=== PATIENT | female | born 1930 | race Caucasian/White ===

== ENCOUNTER → 2019-10-26 | Outpatient (CLI) | payer MEDICARE ==
--- NOTE | 2019-10-26 14:24 | Diagnostic Imaging Report ---
EXAMINATION: CT Abdomen Pelvis without contrast. TECHNIQUE: Multiple contiguous axial images were obtained through the abdomen and pelvis without the use of intravenous contrast. All CT scans use one or more of the following dose optimizing techniques: automated exposure control, MA and/or KvP adjustment based on a patient size and exam type, or iterative reconstruction. HISTORY: Urinary tract infection and hematuria. COMPARISON: None available. FINDINGS: Limited views of the lower thorax are unremarkable. The liver is normal without focal lesion. There is no biliary ductal dilation. Gallbladder is surgically absent. Pancreas is normal. Spleen is normal. Adrenal glands are normal. Simple cyst is present in the right kidney. No suspicious renal lesions are seen. No renal stones are seen. There is no hydronephrosis. There is a 13 mm calcification in the base of the bladder which likely represents a bladder stone. Uterus and adnexa are not seen. There are no dilated loops of large or small bowel. No obstruction or inflammation. No free fluid or air. No abdominal or pelvic lymphadenopathy. Aorta is normal in caliber without aneurysm. There are no suspicious osseus lesions. Spinal stimulator is present. There has been posterior decompression and instrumented fusion of L4-L5. IMPRESSION: 1. Large stone in the base of the bladder. Dictated by: Dictated on workstation # [id number]
== END ==
LOC: RAD 12:56
PROVIDERS: ATTEND Urology
DX: N21.0 Calculus in bladder (principal); Z87.440 Personal history of urinary (tract) infections
CPT/HCPCS: 74176

== ENCOUNTER 2019-12-05 10:49 | Outpatient (CLI) | payer MEDICARE ==
[~2019-12-05] VITALS: Ht 167 cm; Wt 126.0 kg
[2019-12-05] MEDS ORDERED: DABI150C5 PO (11:09)
[2019-12-05] MEDS ORDERED: METO50TA15 PO (11:09)
[2019-12-05] MEDS ORDERED: MIRA50TA PO (11:09)
[2019-12-05] MEDS ORDERED: GLIM4TAB5 PO (11:09)
[2019-12-05] MEDS ORDERED: HYDR25TA4 PO (11:09)
[2019-12-05] MEDS ORDERED: NITR-68 PO (11:09)
[2019-12-05] MEDS ORDERED: DULO60CA59 PO (11:09)
[2019-12-05] MEDS ORDERED: METF-399 PO (11:09)
[2019-12-05] MEDS ORDERED: CALC600T12 PO (11:09)
[2019-12-05] MEDS ORDERED: LANS30TA9 PO (11:09)
[2019-12-05] MEDS ORDERED: MIRT15TA6 PO (11:09)
[2019-12-05] MEDS ORDERED: CHOL500049 PO (11:09)
[2019-12-05] MEDS ORDERED: LEVO75TA97 PO (11:09)
[2019-12-05] MEDS ORDERED: AMLO5TAB9 PO (11:09)
[2019-12-05] MEDS ORDERED: MAGN250T13 PO (11:09)
[2019-12-05] MEDS ORDERED: ASPI-586 PO (11:17)
== END 2019-12-05 13:17 | disposition home or self-care (01) ==
LOC: PREOP 10:49
PROVIDERS: ATTEND Urology
DX: Z01.818 Encounter for other preprocedural examination (principal)

== ENCOUNTER 2019-12-12 06:45 | Day surgery (SDC) | payer MEDICARE ==
[~2019-12-12] VITALS: Ht 167 cm; Wt 128.6 kg
[2019-12-12] VITALS (10 sets, daily range): BP systolic 137–180; BP diastolic 62–88
[~2019-12-12 06:45] MED LIST: AMLO5TAB9 PO; ASPI-586 PO; CALC600T12 PO; CHOL500049 PO; DABI150C5 PO; DULO60CA59 PO; GLIM4TAB5 PO; HYDR25TA4 PO; LANS30TA9 PO; LEVO75TA97 PO; MAGN250T13 PO; METF-399 PO; METO50TA15 PO; MIRA50TA PO; MIRT15TA6 PO; NITR-68 PO
--- OUTSIDE RECORDS SUMMARY | 2019-12-12 06:49 | XMS REPORT | CCD ---
Author Author JOHN SHIELDS Organization Unknown Address [address] [place], [place] [id number] Care Team Providers Care Firesetter Name Role Phone DANA SEPULVEDA, ASAF FLORES Attphys F., JESSICA NASST H., BURAK NASST C., JUDAH NASST W., ADAM NASST S., GEOVANNI NASST H., LYNDA NASST B., DIANNA NASST S., GISELLE BLAS NASST B., ANJEL NASST R., GRISELDA NASST A., DOMINICK NASST M., ALBERTO NASST M., SHELBY S NASST S., YOSLEIN NASST Vital Signs Vital Sign Value Unit Weight Measured 300 lbs Height 67 in BMI (Body Mass Index) 46.99 kg/m^2 BSA (Body Surface Area) 2.54 m^2 BP Systolic 135 mmHg BP Diastolic 90 mmHg BP Systolic 140 mmHg BP Diastolic 62 mmHg BP Systolic 134 mmHg BP Diastolic 70 mmHg BP Systolic 136 mmHg BP Diastolic 72 mmHg BP Systolic 148 mmHg BP Diastolic 68 mmHg BP Systolic 123 mmHg BP Diastolic 65 mmHg BP Systolic 136 mmHg BP Diastolic 53 mmHg BP Systolic 122 mmHg BP Diastolic 53 mmHg BP Systolic 128 mmHg BP Diastolic 65 mmHg BP Systolic 153 mmHg BP Diastolic 71 mmHg BP Systolic 143 mmHg BP Diastolic 73 mmHg BP Systolic 140 mmHg BP Diastolic 63 mmHg BP Systolic 132 mmHg BP Diastolic 67 mmHg BP Systolic 137 mmHg BP Diastolic 76 mmHg BP Systolic 140 mmHg BP Diastolic 60 mmHg BP Systolic 131 mmHg BP Diastolic 62 mmHg BP Systolic 119 mmHg BP Diastolic 65 mmHg BP Systolic 123 mmHg BP Diastolic 49 mmHg BP Systolic 137 mmHg BP Diastolic 67 mmHg BP Systolic 135 mmHg BP Diastolic 68 mmHg BP Systolic 143 mmHg BP Diastolic 71 mmHg BP Systolic 143 mmHg BP Diastolic 62 mmHg Respiratory Rate 20 bpm Respiratory Rate 20 bpm Respiratory Rate 20 bpm Respiratory Rate 18 bpm Respiratory Rate 16 bpm Respiratory Rate 18 bpm Respiratory Rate 20 bpm Respiratory Rate 20 bpm Respiratory Rate 20 bpm Respiratory Rate 18 bpm Respiratory Rate 18 bpm Respiratory Rate 20 bpm Respiratory Rate 18 bpm Respiratory Rate 18 bpm Respiratory Rate 20 bpm Respiratory Rate 20 bpm Respiratory Rate 20 bpm Respiratory Rate 20 bpm Respiratory Rate 20 bpm Respiratory Rate 20 bpm Respiratory Rate 20 bpm Respiratory Rate 18 bpm Heart Rate 91 bpm Heart Rate 100 bpm Heart Rate 88 bpm Heart Rate 81 bpm Heart Rate 86 bpm Heart Rate 84 bpm Heart Rate 93 bpm Heart Rate 67 bpm Heart Rate 89 bpm Heart Rate 90 bpm Heart Rate 89 bpm Heart Rate 94 bpm Heart Rate 92 bpm Heart Rate 86 bpm Heart Rate 86 bpm Heart Rate 86 bpm Heart Rate 77 bpm Heart Rate 77 bpm Heart Rate 80 bpm Heart Rate 86 bpm Heart Rate 87 bpm Heart Rate 85 bpm O2 % BldC Oximetry 95 % O2 % BldC Oximetry 95 % O2 % BldC Oximetry 95 % O2 % BldC Oximetry 95 % O2 % BldC Oximetry 96 % O2 % BldC Oximetry 97 % O2 % BldC Oximetry 95 % O2 % BldC Oximetry 95 % O2 % BldC Oximetry 95 % O2 % BldC Oximetry 97 % O2 % BldC Oximetry 96 % O2 % BldC Oximetry 96 % O2 % BldC Oximetry 96 % O2 % BldC Oximetry 96 % O2 % BldC Oximetry 98 % O2 % BldC Oximetry 96 % O2 % BldC Oximetry 95 % O2 % BldC Oximetry 95 % O2 % BldC Oximetry 95 % O2 % BldC Oximetry 96 % O2 % BldC Oximetry 95 % O2 % BldC Oximetry 99 % Body Temperature 96.9 degrees Body Temperature 97.4 degrees Body Temperature 97 degrees Body Temperature 97 degrees Body Temperature 98.2 degrees Body Temperature 98.3 degrees Body Temperature 98.6 degrees Body Temperature 96.8 degrees Body Temperature 96.8 degrees Body Temperature 96.8 degrees Body Temperature 96.9 degrees Body Temperature 96.9 degrees Body Temperature 96.9 degrees Body Temperature 97 degrees Body Temperature 96.8 degrees Body Temperature 97 degrees Body Temperature 97.1 degrees Body Temperature 98.7 degrees Body Temperature 98.6 degrees Body Temperature 97.3 degrees Body Temperature 98.4 degrees Body Temperature 98 degrees Allergies Allergy Code Allergy Type Reaction Status CEPHALEXIN 0 Drug allergy (disorder) Active SINGULAIR 0 Drug allergy (disorder) Active CELEBREX 0 Drug allergy (disorder) Active NAPROXEN 0 Drug allergy (disorder) Active LATEX 0 Allergy to substance (disorder) Active WELLBUTRIN 0 Drug allergy (disorder) Active SULFA (sulfonamide) 0 Drug allergy (disorder) Active MORPHINE 0 Drug allergy (disorder) Active RENÉE 0 Drug allergy (disorder) Active LISINOPRIL 0 Drug allergy (disorder) Active TETANUS TOXOID 0 Drug allergy (disorder) Active Procedures Unknown. 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 Active Post op pain 188283317 01/11/2014 Ac tive Status post knee replacement 278155829 01/11/2014 Active Results PROTIME Test Name Code Test Result Test Units Angela t Date/Time PROTIME 98471-4 13.3000 SEC 01/13/2014 0 6:05 INR 1.3000 01/13/2014 06:0 5 PROTIME Test Name Code Test Result Test Units Angela t Date/Time PROTIME 75165-9 12.4000 SEC 01/12/2014 0 7:50 INR 1.2000 01/12/2014 07:5 0 CBC W/ AUTO DIFF (RFLX MAN DIFF IF IND) Test Name Code Test Result Test Units Angela t Date/Time WBC 50884-0 9.9000 TH/CMM 01/12/2014 06: 10 RBC 789-8 4.1200 ML/CMM 01/12/2014 06:1 0 HGB 718-7 12.2000 G/DL 01/12/2014 06: 10 HCT 4544-3 36.8000 % 01/12/2014 06: 10 MCV 89.0000 FL 01/12/2014 06: 10 MCH 29.6000 PG 01/12/2014 06: 10 MCHC 33.2000 G/DL 01/12/2014 06: 10 RDW SD 48.0000 FL 01/12/2014 06: 10 RDW CV 14.8000 % 01/12/2014 06: 10 MPV 9.8000 FL 01/12/2014 06:1 0 PLT 777-3 266.0000 TH/CMM 01/12/2014 06 :10 NRBC# 0.0000 TH/CMM 01/12/2014 06:1 0 NRBC% 0.0000 /100WBC 01/12/2014 06: 10 %NEUT 73.8000 % 01/12/2014 06: 10 %LYMP 15.5000 % 01/12/2014 06: 10 %MONO 10.6000 % 01/12/2014 06: 10 %EOS 0.0000 % 01/12/2014 06:1 0 %BASO 0.1000 % 01/12/2014 06:1 0 #NEUT 7.3400 TH/CMM 01/12/2014 06:1 0 #LYMP 1.5400 TH/CMM 01/12/2014 06:1 0 #MONO 1.0500 TH/CMM 01/12/2014 06:1 0 #EOS 0.0000 TH/CMM 01/12/2014 06:1 0 #BASO 0.0100 TH/CMM 01/12/2014 06:1 0 MANUAL DIFF NOT IND N/A 4 06:10 CBC W/ AUTO DIFF (RFLX MAN DIFF IF IND) Test Name Code Test Result Test Units Angela t Date/Time WBC 29472-3 8.2000 TH/CMM 01/13/2014 06: 05 RBC 789-8 3.7400 ML/CMM 01/13/2014 06:0 5 HGB 718-7 11.0000 G/DL 01/13/2014 06: 05 HCT 4544-3 33.3000 % 01/13/2014 06: 05 MCV 89.0000 FL 01/13/2014 06: 05 MCH 29.4000 PG 01/13/2014 06: 05 MCHC 33.0000 G/DL 01/13/2014 06: 05 RDW SD 49.0000 FL 01/13/2014 06: 05 RDW CV 15.3000 % 01/13/2014 06: 05 MPV 9.9000 FL 01/13/2014 06:0 5 PLT 777-3 243.0000 TH/CMM 01/13/2014 06 :05 NRBC# 0.0000 TH/CMM 01/13/2014 06:0 5 NRBC% 0.0000 /100WBC 01/13/2014 06: 05 %NEUT 61.1000 % 01/13/2014 06: 05 %LYMP 23.8000 % 01/13/2014 06: 05 %MONO 13.9000 % 01/13/2014 06: 05 %EOS 1.0000 % 01/13/2014 06:0 5 %BASO 0.2000 % 01/13/2014 06:0 5 #NEUT 5.0000 TH/CMM 01/13/2014 06:0 5 #LYMP 1.9500 TH/CMM 01/13/2014 06:0 5 #MONO 1.1400 TH/CMM 01/13/2014 06:0 5 #EOS 0.0800 TH/CMM 01/13/2014 06:0 5 #BASO 0.0200 TH/CMM 01/13/2014 06:0 5 MANUAL DIFF NOT IND N/A 4 06:05 CBC W/ AUTO DIFF (RFLX MAN DIFF IF IND) Test Name Code Test Result Test Units Angela t Date/Time WBC 97642-8 9.2000 TH/CMM 01/14/2014 06: 35 RBC 789-8 3.9200 ML/CMM 01/14/2014 06:3 5 HGB 718-7 11.6000 G/DL 01/14/2014 06: 35 HCT 4544-3 35.3000 % 01/14/2014 06: 35 MCV 90.0000 FL 01/14/2014 06: 35 MCH 29.6000 PG 01/14/2014 06: 35 MCHC 32.9000 G/DL 01/14/2014 06: 35 RDW SD 51.0000 FL 01/14/2014 06: 35 RDW CV 15.5000 % 01/14/2014 06: 35 MPV 9.7000 FL 01/14/2014 06:3 5 PLT 777-3 236.0000 TH/CMM 01/14/2014 06 :35 NRBC# 0.0000 TH/CMM 01/14/2014 06:3 5 NRBC% 0.0000 /100WBC 01/14/2014 06: 35 %NEUT 57.2000 % 01/14/2014 06: 35 %LYMP 32.1000 % 01/14/2014 06: 35 %MONO 8.3000 % 01/14/2014 06:3 5 %EOS 2.0000 % 01/14/2014 06:3 5 %BASO 0.4000 % 01/14/2014 06:3 5 #NEUT 5.2700 TH/CMM 01/14/2014 06:3 5 #LYMP 2.9500 TH/CMM 01/14/2014 06:3 5 #MONO 0.7600 TH/CMM 01/14/2014 06:3 5 #EOS 0.1800 TH/CMM 01/14/2014 06:3 5 #BASO 0.0400 TH/CMM 01/14/2014 06:3 5 MANUAL DIFF NOT IND N/A 4 06:35 PROTIME Test Name Code Test Result Test Units Angela t Date/Time PROTIME 35776-5 11.6000 SEC 01/14/2014 0 6:35 INR 1.1000 01/14/2014 06:3 5 PT/PTT Test Name Code Test Result Test Units Angela t Date/Time PROTIME 43424-5 11.2000 SEC 01/11/2014 0 8:25 INR 1.1000 01/11/2014 08:2 5 PTT 3173-2 23.2000 SEC 01/11/2014 08: 25 Medications Medication Code Dose Units Frequency Rou te Modification Start Date/Time Stop Date/Time LR 1000ML IV [PREDEFINED] 719579 CO NT IV IV 01/11/2014 13:05 ~~ LR 1000 ML (7953) IV BAG 786099 2700 ML ONDANSETRON [ZOFRAN] INJ 4 MG/2 ML VIAL 821888 4 MG PRN SIVP 01/11/2014 13:06 MILK OF MAGNESIA:12OZ 014586 30 ML PRN PO 01/11/2014 13:06 BISACODYL [DULCOLAX] SUPP : 10 MG 853947 10 M G PRN RECTALLY 01/11/2014 13:06 TEMAZEPAM [RESTORIL] CAPSULE : 7.5 MG 266121 1 EA PRN PO 01/11/2014 13:06 DIPHENHYDRAMINE (BENADRYL) CAP : 50 MG 2133941 50 MG PRN PO 01/11/2014 13:06 DIPHENHYDRAMINE (BENADRYL)INJ : 50MG/ML 1163860 50 MG PRN SIVP 01/11/2014 13:06 VITAMIN ( SUB FOR ALL MULTIVITAMINS) 730598 1 TAB DAILY PO 01/11/2014 13:06 ASCORBIC ACID [VITAMIN C] TAB : 500 MG 582777 500 MG DAILY PO 01/11/2014 13:07 FERROUS SULFATE 325MG TABLET 786826 325 MG BID PO 01/11/2014 13:07 DOCUSATE SODIUM 100 MG [COLACE] CAPSULE 5658791 100 MG BID PO 01/11/2014 13:07 HYDROmorphone SYR(DILAUDID)SYR:2MG/ML 677164 1 MG PRN IV 01/11/2014 13:08 NORCO [HYDROCODONE/APAP] 10/325MG TAB 541961 1 TAB PRN PO 01/11/2014 13:08 AMLODIPINE [NORVASC] TABLET : 5 MG 733971 5 MG DAILY PO 01/11/2014 13:16 BUMETANIDE [BUMEX] TABLET : 1 MG 064457 1 MG PRN PO 01/11/2014 13:17 PATIENTS OWN MEDS 91249158888 1 EA DAILY PO 01/11/2014 13:18 FLUOXETINE [PROZAC] CAPSULE: 20 MG 128344 20 MG HS PO 01/11/2014 13:23 GABAPENTIN (NEURONTIN) CAP:100 MG 370315 200 M G TID PO 01/11/2014 13:24 HYDROCHLOROTHIAZIDE [HCTZ] TAB: 25 MG 799850 25 MG DAILY PO 01/11/2014 13:25 PANTOPRAZOLE [PROTONIX] TABLET : 40 MG 724111 40 MG DAILY PO 01/11/2014 13:25 LEVOTHYROXINE (SYNTHROID)50 MCG 793600 50 MCG DAILY PO 01/11/2014 13:26 NF-LIPITOR ORAL TABLET 10MG 454565 10 MG HS PO 01/11/2014 13:26 METOPROLOL [LOPRESSOR] TABLET: 50MG 876229 100 MG DAILY PO 01/11/2014 13:27 NF-VITAMIN B COMPLEX CAPSULE 89463346671 1 E A DAILY PO 01/11/2014 13:28 VITAMIN D TABLET 1000 UNITS 277806 1 EA DAILY PO 01/11/2014 13:28 ENOXAPARIN 40 MG/0.4ML YELLOW [LOVENOX] 268469 40 MG Q24H SUB Q 01/12/2014 08:00 WARFARIN [COUMADIN] TAB : 5 MG (PEACH) 494638 2.5 MG COUMADIN PO 01/12/2014 07:45 Lipitor 10MG Oral Tablet 380851 10 MILLIGRAMS DAILY ORAL 01/14/2014 10:02 Lansoprazole 30MG Oral Capsule, Delayed Release 228299 30 MILLIGRAMS DAILY ORAL 01/14/2014 10:03 WARFARIN 0 1.25 MILLIGRAMS WEDNESDAYS ORAL 01/14/2014 10:03 Metoprolol Tartrate 100MG Oral Tablet 733712 100 MILLIGRAMS DAILY ORAL 01/14/2014 10:03 Hydrochlorothiazide 25MG Oral Tablet 293006 25 MILLIGRAMS DAILY ORAL 01/14/2014 10:03 Fluoxetine 20MG Oral Capsule 877572 20 MILLIG MARTHA AT BEDTIME ORAL 01/14/2014 10:03 Levothyroxine Sodium 0.05MG Oral Tablet 476524 0. 05 MILLIGRAMS DAILY ORAL 01/14/2014 10:03 Bumetanide 1MG Oral Tablet 301440 1 MILLIGRA MS NEEDED ORAL 01/14/2014 10:03 Vitamin D3 1000IU Oral Tablet 164253 1307 INTERNATIONAL UNITS DAILY ORAL 01/14/2014 10:03 VITAMIN B-COMPLEX 0 1 EACH DAILY ORA L 01/14/2014 10:03 COQ10 0 100 MILLIGRAMS DAILY ORAL 01/14/2014 10:03 OTC ARTHRITIS MEDICATION 0 1 EACH NE EDED ORAL 01/14/2014 10:03 Amlodipine 5MG Oral Tablet 734300 5 MILLIGRAMS ORAL 01/14/2014 10:03 Warfarin Sodium 2.5MG Oral Tablet 486673 2.5 M ILLIGRAMS MON,TUES,THUR,FRI,SAT,SUN ORAL 01/14/2014 10:03 Gabapentin 100MG Oral Capsule 559065 2 TABLE T THREE TIMES A DAY ORAL 01/14/2014 10:03 Thera-M Enhanced 90MG-0.03MG-0.15MG-4 Oral Tablet 501765 1 TABLET DAILY BY MOUTH 01/14/2014 10:03 Docusate Sodium 100MG Oral Capsule 3412596 100 MILLIGRAMS TWO TIMES A DAY BY MOUTH 01/14/2014 10:03 APAP/Hydrocodone Bitartrate 325MG-10MG Oral Tablet 945133 1 TABLET NEEDED BY MOUTH 01/14/2014 10:03 Novaplus Lovenox 40MG/0.4ML Subcutaneous Solution 302753 40 MILLIGRAMS EVERY 24 HOURS SUB Q 01/14/2014 10:03 Tramadol 50MG Oral Tablet 620370 50 MILLIGRAM S NEEDED EVERY 6 HR ORAL Allopurinol 100MG Oral Tablet 898364 100 DRU GRAMS DAILY ORAL Fluoxetine 20MG Oral Tablet 241458 20 MILLIGR AMS DAILY ORAL Gabapentin 100MG Oral Capsule 633791 2 TABLE T THREE TIMES A DAY ORAL Fluoxetine 20MG Oral Tablet 225650 20 MILLIGR AMS DAILY ORAL Warfarin Sodium 2.5MG Oral Tablet 607009 2.5 M ILLIGRAMS DAILY ORAL Amlodipine 5MG Oral Tablet 259334 5 MILLIGRAMS ORAL OTC ARTHRITIS MEDICATION 0 1 EACH NE EDED ORAL COQ10 0 100 MILLIGRAMS DAILY ORAL VITAMIN B-COMPLEX 0 1 EACH DAILY ORA L Vitamin D3 1000IU Oral Tablet 128980 0610 INTERNATIONAL UNITS DAILY ORAL Lipitor 10MG Oral Tablet 908869 10 MILLIGRAMS DAILY ORAL Bumetanide 1MG Oral Tablet 572176 1 MILLIGRA MS NEEDED ORAL Levothyroxine Sodium 0.05MG Oral Tablet 829656 0. 05 MILLIGRAMS DAILY ORAL Fluoxetine 20MG Oral Capsule 882662 20 MILLIG MARTHA AT BEDTIME ORAL Hydrochlorothiazide 25MG Oral Tablet 703461 25 MILLIGRAMS DAILY ORAL Metoprolol Tartrate 100MG Oral Tablet 408516 100 MILLIGRAMS DAILY ORAL Lansoprazole 30MG Oral Capsule, Delayed Release 132131 30 MILLIGRAMS DAILY ORAL Medications Administered Medication Dose Units Frequency Route D ate/Time of Last Dose LR 1000ML IV [PREDEFINED] CONT IV IV 01/11/2014 18:55 VANCOMYCIN [PREDEFINED] ADV IV : 1000MG Q10H IV 01/12/2014 06:22 VITAMIN (LH SUB FOR ALL MULTIVITAMINS) 1 TAB DAILY PO 01/14/2014 08:24 ASCORBIC ACID [VITAMIN C] TAB : 500 MG 500 MG DAILY PO 01/14/2014 08:24 FERROUS SULFATE 325MG TABLET 325 MG BID P O 01/14/2014 08:24 DOCUSATE SODIUM 100 MG [COLACE] CAPSULE 100 MG BID PO 01/14/2014 08:24 HYDROmorphone SYR(DILAUDID)SYR:2MG/ML 0.5 MG PRN IV 01/12/2014 15:12 NORCO [HYDROCODONE/APAP] 10/325MG TAB 1 EA PRN PO 01/14/2014 12:17 AMLODIPINE [NORVASC] TABLET : 5 MG 5 MG DAILY PO 01/14/2014 08:24 FLUOXETINE [PROZAC] CAPSULE: 20 MG 20 MG HS PO 01/13/2014 21:55 GABAPENTIN (NEURONTIN) CAP:100 MG 200 MG TID PO 01/14/2014 12:17 HYDROCHLOROTHIAZIDE [HCTZ] TAB: 25 MG 25 MG DAILY PO 01/14/2014 08:24 PANTOPRAZOLE [PROTONIX] TABLET : 40 MG 40 MG DAILY PO 01/14/2014 08:24 LEVOTHYROXINE (SYNTHROID)50 MCG 50 MCG DAILY PO 01/14/2014 06:43 NF-LIPITOR ORAL TABLET 10MG 10 MG HS PO 01/13/2014 21:55 METOPROLOL [LOPRESSOR] TABLET: 50MG 100 MG DAILY PO 01/14/2014 08:24 VITAMIN D TABLET 1000 UNITS 1 TAB DAILY P O 01/14/2014 08:24 ENOXAPARIN 40 MG/0.4ML YELLOW [LOVENOX] 40 MG Q24H SUB Q 01/14/2014 08:24 WARFARIN [COUMADIN] TAB : 5 MG (PEACH) 2.5 MG COUMADIN PO 01/13/2014 17:48 Encounters Unknown. Social History Smoking Status Code Start Date End Date Never smoker [id number] Patient Decision Aids Patient Decision Aid Non-pharmacological Pain Management Ther apies for Adults PATIENT PORTAL ACCESS Pain Management and Opioids Pain Management and Opioids Postop pain Instructions You were admitted to [facility] on 01/11/2014. You were discharged from [facility] on 01/14/2014. Should you have any questions prior to discharge, please contact a member of your healthcare team. If you have left the hospital and have any questions, please contact your primary care physician. PERSONAL ITEMS RETURNED: Yes. INSTRUCTIONS GIVEN AND DISCHARGE TO: Patient. VOICES UNDERSTANDING OF INSTRUCTIONS: Yes. INSTRUCTIONS GIVEN BY (TYPE IN NAME AND DATE) NADJA RN 01/14/14 FOLLOW-UP OUTPATIENT SERVICES: F/U WITH PRIMARY CARE DOCTOR ON Thursday01/16/14 TO CHECK PT/INR CHIEF COMPLAINT: C/O PAIN IN LEFT KNEE Chief Complaint and Reason For Visit Chief Complaint Date of Onset ORT TOTAL KNEE LT Function Status Unknown. Plan of Care Unknown. Referral/Transition of Care Unknown.
--- OUTSIDE RECORDS SUMMARY | 2019-12-12 06:49 | XMS REPORT | Clinical Summary ---
Author Author Admin, Mohini Adams Organization [facility] Address Unknown Phone Allergies, Adverse Reactions, Alerts Allergy Name Reaction Description Start Date Severity Status Pr ovider VOSPIRE ER Critical Active Minda Ravindra APR N RENÉE ALLERGY Critical Active Minda Kin g CLICKER OPERATOR SINGULAIR Critical Active Minda Ravindra APR N ALEVE Critical Active Minda Ravindra APR N LISINOPRIL Critical Active Minda Ravindra APR N MORPHINE Critical Active Minda Ravindra APR N WELLBUTRIN Critical Active Minda Ravindra APR N TETANUS TOXOID ADSORBED Critical Active K justyn Ravindra CLICKER OPERATOR SULFA Critical Active Minda Ravindra APR N Conditions or Problems Problem Name Problem Code Onset Date Status Entry Date Provider Comment Standard Description Annotate FH COLON CANCER V16.0 Active Malachi Sinha Family history of malignant neoplasm of gastrointestinal tract RECTAL BLEEDING 569.3 Active Malachi acuña MD Hemorrhage of rectum and anus Medication List Medication Instructions Start Date Stop Date Generic Name NDC Status Provider Patient Instruction LEVOTHYROXINE SODIUM 50 MCG TABS Take 1 tab daily LEVOTHYROXINE SODIUM 88417000304 Active Maritza Sinha Laury [employer] Active ARTHRITIS PAIN RELIEF 650 MG CR-TABS 2 qd ACETAMINOPHEN 28382124218 Active Minda Waite CLICKER OPERATOR Active FLUOXETINE HCL 20 MG CAPS 1 qd FLUOXETINE HCL 5113 0203352 Active Minda Waite CLICKER OPERATOR Active LIPITOR 10 MG TABS 1 qd ATORVASTATIN CALCIUM 54606 551622 Active Minda Waite CLICKER OPERATOR Active COQ-10 100 MG CAPS 1 qd COENZYME Q10 58581906296 A ctive Minda Waite CLICKER OPERATOR Active COUMADIN 2.5 MG TABS 1 qd WARFARIN SODIUM 84595792 430 Active Minda Waite CLICKER OPERATOR Active AMLODIPINE BESYLATE 5 MG TABS 1 bid AMLODI PINE BESYLATE 46012656941 Active Minda Waite APRN Active B COMPLEX-FOLIC ACID 500-5-200 MCG-MG-MCG TABS 1 qd FOLIC ACID-VIT B6-VIT B12 71900135317 Active Minda Waite APRN Active VITAMIN D3 3000 UNIT TABS 1 qd CHOLECALCIFEROL 584 68250746 Active Minda Waite APRN Active HYDROCHLOROTHIAZIDE 25 MG TABS 1 qd HYDRO CHLOROTHIAZIDE 48370734408 Active Minda Waite APRN Active LANSOPRAZOLE 30 MG CPDR 1 qd LANSOPRAZOLE 33488477 156 Active Minda Waite APRN Active MELOXICAM 15 MG TABS 1 qd MELOXICAM 62768731972 Ac tive Minda Waite APRN Active GABAPENTIN 100 MG CAPS 1 q d prn pain GABAPENTIN 11998553503 Active Minda Waite APRN Active BUMETANIDE 0.5 MG TABS 1 tab 2 times week prn B UMETANIDE 52925368816 Active Minda Waite APRN Active Vital Signs Date Name Value Unit Range Description blood pressure, diastolic - 8462-4 87 mm[Hg] BP neal blood pressure, systolic - 8480-6 184 mm[Hg] BP sys height E&M - 8302-2 315 [in_us] Bdy h eight pulse rate E&M - 8867-4 74 /min H eart rate temperature E&M 97.7 [degF] Body temp erature weight E&M - 3141-9 166.5 [lb_av] Weigh t Measured Procedures Code Procedure Name Date Entry Date Standard Desc ription CPT-OV Office Visit 14:52:44 CDT
[2019-12-12] MEDS ORDERED: LACTATED RINGERS 1,000 ML IV PRN (06:50)
[2019-12-12] MEDS ORDERED: LEVOFLOXACIN 500 MG/100 ML IV 100 ML IV ONE (07:00)
[2019-12-12] MEDS ORDERED: ONDANSETRON 4 MG/2 ML (SDV) Z0FRAN ONE ×2 (07:17→09:01)
[2019-12-12] MEDS ORDERED: FAMOTIDINE 20MG/2ML IV (PEPCID) ONE (07:17)
[2019-12-12] MEDS ORDERED: FAMOTIDINE 20MG/2ML IV (PEPCID) IV ONE (07:30)
[2019-12-12] MEDS ORDERED: CATHETER FLUSH 10 ML SYR IV PRN (07:30)
[2019-12-12] MEDS ORDERED: ONDANSETRON 4 MG/2 ML (SDV) Z0FRAN IV ONE (07:30)
[2019-12-12] MEDS ORDERED: proPOfol 200 MG/20 ML (DIPRIVAN) VIAL IV ONE (07:34)
[2019-12-12] MEDS ORDERED: fentaNYL INJECTION 100 MCG/2 ML AMP ONE (07:34)
[2019-12-12] MEDS ORDERED: LIDOCAINE PF 2% 5 ML (XYLOCAINE) VIAL ONE ×2 (07:34→09:01)
--- NOTE | 2019-12-12 08:14 | Progress Note-Pre Operative ---
Pre-Operative Progress Note H&P Reviewed The H&P was reviewed, patient examined and no changes noted. 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
--- NOTE | 2019-12-12 08:50 | Progress Note-Post Operative ---
Post-Operative Progess Note Surgeon (s)/Duct Cleaner (s) Surgeon ANA PEREZ MD Duct Cleaner: NONE Pre-Operative Diagnosis BLADDER MASS POSSIBLE TUMOR, POSSIBLE STONE Post-Operative Diagnosis BLADDER TUMOR (MEDIUM), NO SONE Procedure & Operative Findings Date of Procedure 12/12/19 Procedure Performed/Findings TURBT Anesthesia Type GENERAL Estimated Blood Loss Estimated blood loss (mL): NONE Specimens/Packing Specimens Removed BLADDER TUMOR CHIPS AND BASE Packing: NONE ANA PEREZ MD Dec 12, 2019 08:50
--- NOTE | 2019-12-12 08:52 | Discharge Inst-Urology ---
Discharge Inst-Urology Reconcile Patient Problems Problems Reviewed?: Yes Final Diagnosis BLADDER TUMOR Patient Instructions/Follow Up Plan/Assessment/Instructions Please make appointment to been seen in office in 2 weeks. In 72 hours, if no bleeding, may resume ASA and Pradaxa Increase oral fluids for 48 hours and then as needed. Diet and Activity as tolerated. If questions or concerns contact your physician Or seek help at emergency department. ANA PEREZ MD Dec 12, 2019 08:52
[2019-12-12] MEDS ORDERED: SUCCINYLCHOLINE INJ 100 MG/5 ML SYR ONE (09:01)
[2019-12-12] MEDS ORDERED: SEVOFLURANE (ULTANE) 15 ML INHAL SOLN ONE (09:01)
[2019-12-12] MEDS ORDERED: NITR-65 PO (09:32)
[2019-12-12] MEDS ORDERED: PHEN-640 PO (09:32)
--- NOTE | 2019-12-12 10:51 | Anesthesia-General Post-Op ---
General Patient Condition Mental Status/LOC: Same as Preop Cardiovascular: Satisfactory Nausea/Vomiting: Absent Respiratory: Satisfactory Pain: Controlled Complications: Absent Post Op Complications Complications None Follow Up Care/Instructions Patient Instructions None needed. Anesthesia/Patient Condition Patient Condition Patient is doing well, no complaints, stable vital signs, no apparent adverse anesthesia problems. No complications reported per nursing. ANASTACIO RANGEL CRNA Dec 12, 2019 10:51
--- NOTE | 2019-12-12 13:49 | OPERATIVE REPORT ---
DATE OF SERVICE: 12/12/2019 PREOPERATIVE DIAGNOSES: Gross hematuria, possible bladder tumor and possible bladder stone. POSTOPERATIVE DIAGNOSES: Gross hematuria, possible bladder tumor and possible bladder stone. Bladder tumor, medium. No stones. OPERATION PERFORMED: Transurethral resection of bladder tumor. SURGEON: Chris Perez MD. ANESTHESIA: General. COMPLICATIONS: None. DESCRIPTION OF PROCEDURE: Under satisfactory general anesthesia, the patient in lithotomy position, genitalia were prepped and draped in the usual sterile fashion. First, I performed cystoscopy with both lenses and the only thing was visualized was a medium sized bladder tumor in the left lateral wall. There was no further tumor and no stones. I removed the cystoscope, inserted the resectoscope and completely resected the tumor, the base separately, cauterized the base and the edges and hemostasis was complete. Ureteric orifices were normal and away from the tumor. Bladder was evacuated. The resectoscope was removed. There was no need for Catalan catheter. The patient tolerated the procedure and anesthesia well and was sent to recovery room in stable condition. ESTIMATED BLOOD LOSS: Negligible. Job ID: [id number] DocumentID: [id number] Dictated Date: 12/12/2019 09:32:08 Clinical Researcher Date: 12/12/2019 13:48:12 Dictated By: CHRIS PEREZ MD
== END 2019-12-12 11:05 | disposition home or self-care (01) ==
LOC: SDC 06:45
PROVIDERS: ATTEND Urology
DX: C67.2 Malignant neoplasm of lateral wall of bladder (principal); Z11.2 Encounter for screening for other bacterial diseases; I10 Essential (primary) hypertension; J44.9 Chronic obstructive pulmonary disease, unspecified; I48.91 Unspecified atrial fibrillation; E11.9 Type 2 diabetes mellitus without complications; M19.91 Primary osteoarthritis, unspecified site; F32.9 Major depressive disorder, single episode, unspecified; R32 Unspecified urinary incontinence; Z86.73 Personal history of transient ischemic attack (TIA), and cerebral infarction without residual deficits; Z79.01 Long term (current) use of anticoagulants; Z79.84 Long term (current) use of oral hypoglycemic drugs; E66.01 Morbid (severe) obesity due to excess calories; Z68.42 Body mass index [BMI] 45.0-49.9, adult
CPT/HCPCS: 82962; 87081